=== PATIENT | male | born 1960 | race Caucasian/White ===

== ENCOUNTER 2024-03-11 20:46 | Emergency (ER) | payer MEDICAID, SELFPAY ==
--- NOTE | ~2024-03-11 | XR_ITS ---
EXAMINATION: XR hand RT min 3V DATE: 03/11/2024 21:38 INDICATION: Right thumb injury. TECHNIQUE: 3 views of right hand were obtained. COMPARISON: None. FINDINGS: Bone alignment is normal. No fracture. 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 There are numerous radiopaque foreign bodies in the thumb. IMPRESSION: 1. Numerous radiopaque foreign bodies in the thumb. Reviewed, dictated and finalized at location E.
[2024-03-11 21:20] VITALS: BP 152/95; PULSE 74; RESP 16; TEMP 37; O2SAT 100
--- NOTE | 2024-03-11 22:59 | ED.UPPEXIN ---
HPI - Extremity Injury (Upper) General Chief Complaint: Extremity Injury, Upper Stated Complaint: Slammed right thumb in truck door Time Seen by Provider: 03/11/24 22:30 Source: patient History of Present Illness HPI narrative: the wind slammed the car door on the right thumb 2 hours prior to arrival, denies other injuries. Patient denies other injuries. Related Data Allergies Allergy/AdvReac Type Severity Reaction Status Date / Time No Known Allergies Allergy Verified 03/11/24 20:47 Review of Systems Review of Systems: All systems reviewed & are unremarkable except as noted in HPI and below Exam Narrative: General appearance: Well-developed, well-nourished Skin: Normal color Head: Normocephalic, nontraumatic Vascular: Normal peripheral pulses, normal capillary refill. Musculoskeletal: Right thumb showed subangular hematoma 50% Neurologic: Alert and oriented ?3, [employer] is normal as tested, no gross motor deficit Course Vital Signs Vital signs: Vital Signs Temperature 37.0 C 03/11/24 21:20 Pulse Rate 74 03/11/24 21:20 Respiratory Rate 16 03/11/24 21:20 Blood Pressure 152/95 H 03/11/24 21:20 Pulse Oximetry 100 03/11/24 21:20 Temperature 37.0 C 03/11/24 21:20 Pulse Rate 74 03/11/24 21:20 Respiratory Rate 16 03/11/24 21:20 Blood Pressure 152/95 H 03/11/24 21:20 Pulse Oximetry 100 03/11/24 21:20 Procedures Nail Trephination Nail Trephination #1: Nail Trephination Date: 03/11/24 Nail Trephination Time: 23:21 Time out: Yes (5) Location (finger): right and thumb Sterile prep: other ( None none) Method of drainage: nail cautery Procedure successful: Yes Patient tolerated procedure: well Nail Trephination Comment: MDM - Extremity Injury (Upper) MDM Narrative Medical decision making narrative: traumatic subangular hematoma, right thumb, X-ray showed numerous radiopaque foreign body at the right thumb Physical examination showed no open wound, no bleeding, from body high 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 Numerous radiopaque foreign bodies in the thumb. Critical Care Time Critical Care Time Critical Care Time: No Discharge Plan Discharge Clinical Impression: Hematoma, subungual, thumb, left Qualifiers: Encounter type: initial encounter Qualified Code(s): S60.112A - Contusion of left thumb with damage to nail, initial encounter Patient Disposition: Home, Self-Care Condition: Stable Instructions: Subungual Hematoma (ED) Additional Instructions: keep finger elevated Tylenol, ibuprofen as needed Follow-up/Referrals: Brie Rodarte MD [Physician] - 03/16/24 PHYSICIAN NOT ON STAFF,NONSTAFF [Primary Care Provider] -
[2024-03-11 23:28] VITALS: BP 146/86; PULSE 81; RESP 17; O2SAT 98
== END 2024-03-11 23:28 | disposition home or self-care (01) ==
PROVIDERS: Emergency Provider Emergency Medicine
DX: S60.111A Contusion of right thumb with damage to nail, initial encounter (principal); M79.5 Residual foreign body in soft tissue; W23.0XXA Caught, crushed, jammed, or pinched between moving objects, initial encounter
CPT/HCPCS: 11740; 73130; 99283